=== PATIENT | female | born 1965 | race Caucasian/White ===

== ENCOUNTER 2017-11-01 18:07 | Emergency (ER) | payer OTHER ==
[2017-11-01 18:22] VITALS: BP 141/90
--- NOTE | 2017-11-01 18:35 | UC ---
Respiratory Complaint HPI - HPI Summary HPI Summary: 3 days of uri sx---has had a low grade fever and has now developed an itchy rash n left breast----(tea tree oil helps) - History of Current Complaint Chief Complaint: UCRespiratory Stated Complaint: COUGH, RASH, AND FEVER Time Seen by Provider: 11/01/17 18:16 Hx Obtained From: Patient Hx Last Menstrual Period: hysterectomy ?: No Onset/Duration: Sudden Onset, Lasting Days - 3, Still Present Timing: Constant Pain Intensity: 6 Pain Scale Used: 0-10 Numeric Character: Cough: Productive Aggravating Factors: Nothing Alleviating Factors: Nothing Associated Signs And Symptoms: Positive: Fever, URI, Nasal Congestion - Allergies/Home Medications Allergies/Adverse Reactions: Allergies Allergy/AdvReac Type Severity Reaction Status Date / Time cephalexin [From Keflex] Allergy See Comment Verified 11/01/17 18:24 codeine Allergy Altered Verified 11/01/17 18:24 Mental Status latex Allergy Rash Verified 11/01/17 18:25 Home Medications: Home Medications Budesonide 11/01/17 [History] DULoxetine DR CAP* [Cymbalta CAP*] 11/01/17 [History] Ergocalciferol (Vitamin D2) [Vitamin D2] 2,000 unit PO 11/01/17 [History] Folic Acid 1 mg PO 11/01/17 [History] Meloxicam [Mobic] 11/01/17 [History] Methotrexate [Xatmep] 4.25 mg 11/01/17 [History] Pregabalin [Lyrica] 50 mg PO 11/01/17 [History] PMH/Surg Hx/FS Hx/Imm Hx Previously Healthy: Yes - psor. arthritis - Surgical History Surgical History: Yes Surgery Procedure, Year, and Place: 2 EYE SURGERY FOR STRAIGHTENING EYES CHILD. C SECTION. HYSTERECTOMY. GALLBLADDER. BILATERAL ROTATOR CUFF SURGERIES - Family History Known Family History: Positive: None - Social History Occupation: Disabled Lives: With Family Alcohol Use: None Substance Use Type: Marijuana Smoking Status (MU): Heavy Every Day Tobacco Smoker Have You Smoked in the Last Year: Yes Cessation Counseling: Counseled 3+Min - 10 Min Review of Systems Constitutional: Fever, Chills Skin: Rash - left breast Eyes: Negative ENT: Negative Respiratory: Cough Cardiovascular: Negative Gastrointestinal: Negative Genitourinary: Negative Motor: Negative Neurovascular: Negative Musculoskeletal: Negative Neurological: Negative Psychological: Negative Is Patient Immunocompromised?: No All Other Systems Reviewed And Are Negative: Yes Physical Exam Triage Information Reviewed: Yes Appearance: Well-Appearing, No Pain Distress, Well-Nourished Vital Signs: Initial Vital Signs Temp 97.0 F 11/01/17 18:14 Pulse 83 11/01/17 18:14 Resp 20 11/01/17 18:14 BP 141/90 11/01/17 18:14 Pulse Ox 96 11/01/17 18:14 Vital Signs Reviewed: Yes Eye Exam: Normal Eyes: Positive: Conjunctiva Clear ENT Exam: Normal ENT: Positive: Normal ENT inspection, Hearing grossly normal, Nasal congestion. Negative: TMs normal, Trismus, Muffled voice, Hoarse voice, Sinus tenderness, Uvula midline Dental Exam: Normal Neck exam: Normal Neck: Positive: Supple, Nontender, No Lymphadenopathy Respiratory Exam: Other Respiratory: Positive: Chest non-tender, No respiratory distress, No accessory muscle use, Wheezing - both bases Cardiovascular Exam: Normal Cardiovascular: Positive: RRR, No Murmur, Pulses Normal, Brisk Capillary Refill Musculoskeletal Exam: Normal Musculoskeletal: Positive: Strength Intact, ROM Intact, No Edema Neurological Exam: Normal Neurological: Positive: Alert, Muscle Tone Normal Psychological Exam: Normal Skin Exam: Other Skin: Positive: Other - red flat itchy rash left breast UC Diagnostic Evaluation - Laboratory O2 Sat by Pulse Oximetry: 96 - Radiology Xray Interpretation: No Acute Changes Radiology Interpretation Completed By: ED Physician Re-Evaluation - Re-Evaluation First Eval Change: Improved - wheeze resolved Respiratory Course/Dx - Course Course Of Treatment: zithromax, albuterol, continue tea tree oil , follow with Dr. Price 11/02/17 to ed for worsening sx - Differential Dx/Diagnosis Provider Diagnoses: nicotine dependant, acute bronchospasm, rhinnitis Discharge - Sign-Out/Discharge Documenting (check all that apply): Patient Departure - Discharge Plan Condition: Stable Disposition: HOME Prescriptions: Albuterol HFA INHALER* [Ventolin HFA Inhaler*] 2 puff INH Q4H PRN #1 mdi PRN Reason: cough/wheeze Azithromycin TAB* [Zithromax TAB (Z-TOBY) 250 mg #6 tabs] 2 tab PO .TODAY, THEN 1 DAILY #1 toby Patient Education Materials: How to Stop Smoking (ED), Acute Bronchitis (ED), Contact Dermatitis (ED), Hypertension (ED), How to Use a Metered-Dose Inhaler ( ED) Referrals: Kim Montoya NP [Primary Care Provider] - 2 Weeks (for BP recheck) Hemal Price MD [Medical Doctor] - 1 Day - Billing Disposition and Condition Condition: STABLE Disposition: Home
[2017-11-01] MEDS ORDERED: Albuterol/Ipratropium NEB.SOL* Albuterol 2.5 MG/Ipratropium 0.5 MG 3 ML INH ONE (18:36)
--- NOTE | 2017-11-01 19:23 | RAD ---
Indication: Fever and cough. 2 views of the chest including dual energy PA views demonstrate no mediastinal shift. Heart is of normal size and configuration. Lung richards are clear. IMPRESSION: No active cardiopulmonary disease is noted.
[2017-11-02 11:36] LABS: ABS Basophils 0.1 10^3/ul (0-0.2); ABS Eosinophils 0.3 10^3/ul (0-0.6); ABS Lymphocytes 2.5 10^3/ul (1.0-4.8); ABS Neutrophils 3.5 10^3/ul (1.5-7.7); ABS Nucleated RBC 0 10^3/ul; Eosinophil % 4.2 % (0-6); Hematocrit 45 % (35-47); Hemoglobin 15.6 g/dl (12.0-16.0); Lymphocyte % 33.8 % (25-47); Mean Corpuscular HGB Conc 35 g/dl (31-36); Mean Corpuscular Hemoglobin 33 pg (27-31); Mean Corpuscular Volume 95 fL (80-97); Mean Platelet Volume 8.5 um3 (7.4-10.4); Nucleated Red Blood Cells % 0.1; Platelet Count 311 10^3/ul (150-450); Red Blood Count 4.71 10^6/ul (4.00-5.40); Red Cell Distribution Width 13 % (10.5-15); White Blood Count 7.4 10^3/ul (3.5-10.8)
[2017-11-02 12:34] LABS: EGFR Non-African American 69.7 (>60)
== END 2017-11-01 19:50 | disposition home or self-care (01) ==
LOC: UCEAST 18:07
DX: J31.0 Chronic rhinitis (principal); J98.01 Acute bronchospasm; R50.9 Fever, unspecified; R21 Rash and other nonspecific skin eruption; F17.210 Nicotine dependence, cigarettes, uncomplicated; Z88.1 Allergy status to other antibiotic agents; Z88.5 Allergy status to narcotic agent; Z91.040 Latex allergy status
CPT/HCPCS: 36415; 71046; 80053; 85025; 86140; 99212; A9270-GY; G0463

== ENCOUNTER 2018-11-17 14:10 | Emergency (ER) | payer OTHER ==
[2018-11-17 14:34] VITALS: BP 136/83
--- OUTSIDE RECORDS SUMMARY | 2018-11-17 14:46 | XMS REPORT | Continuity of Care Document ---
:1965 External Reference #:[id number] Author Name Amado Cowart DO, MPH Address [address] [place] [address], [address] [place] [address] Care Team Providers Name Role Phone Jeancarlos De M.D. - Family Care Team Information Protective Officer [phone] Medicine Monalisa Elliott NP - Internal Care Team Information Protective Officer [phone] Medicine Kim Montoya N.P. - Nurse Care Team Information Protective Officer [phone] Practitioner Problems Description No Information Available Social History Type Date Description Comments Sex Unknown Cigarette Use Current Cigarette Smoker 1 Pack Daily ETOH Use Denies alcohol use Tobacco Use Start: Unknown Patient is a current smoker, smokes every day Smoking Status Reviewed: 10/14/18 Patient is a current smoker, smokes every day Allergies, Adverse Reactions, Alerts Active Allergies Reaction Severity Comments Date Latex 06/26/2016 Codeine 06/26/2016 Aleve upset stomach 06/26/2016 Cephalexin 06/26/2016 Ibuprofen upset stomach 06/26/2016 Sulfa Antibiotics 06/26/2016 Nuts 06/26/2016 Wine 06/26/2016 Medications Active Medications SIG Qnty Indications Ordering Date Provider Cymbalta si by mouth 30caps Amado Cowart, 07/21/[address] once a day as , MPH Part directed chronic pain patient Oxycodone HCL si by mouth 120tabs Amado Cowart, 07/22/2016 5mg Tablets every 6 hours as , MPH directed chronic pain patient. Meloxicam si by mouth Unknown 15mg Tablets every day as needed Melatonin 1 by mouth at Unknown 5mg Tablets Sub night Vitamin D 1 by mouth daily Unknown 1000Unit Tablets Folic Acid 1 by mouth every Unknown 1mg Tablets day Lyrica si by mouth Unknown 75mg Capsules every 12 hours as directed chronic pain patient Budesonide Unknown 32mcg/Act Suspension Simponi Aria Unknown 50mg/4ML Solution Cetirizine HCL Unknown 10mg Tablets Triamcinolone apply to the Unknown Acetonide affected area 0.1% Cream three times a day Immunizations Description No Information Available Vital Signs Date Vital Result Comment 11/14/2018 10:59am BP Systolic 142 mmHg BP Diastolic 86 mmHg Heart Rate 82 /min Respiratory Rate 20 /min Height 67 inches 5'7" Weight 213.00 lb Pain Level 7 Pain at this time. Pain Level With Medicine 6 on average with meds Pain Level Without Medicine 9 without meds BMI (Body Mass Index) 33.4 kg/m2 10/14/2018 9:17am BP Systolic 128 mmHg BP Diastolic 84 mmHg Heart Rate 88 /min Respiratory Rate 20 /min Height 67 inches 5'7" Weight 211.00 lb Pain Level 7 Pain at this time. Pain Level With Medicine 6 on average with meds Pain Level Without Medicine 9 without meds BMI (Body Mass Index) 33.0 kg/m2 Results Description No Information Available Procedures Date Code Description Status 10/14/2018 78333 Therapeutic, Prophylactic Or Diagnostic Injection Subq/Im Completed 09/14/2018 64003 Therapeutic, Prophylactic Or Diagnostic Injection Subq/Im Completed 08/15/2018 81356 Omt 1-2 Body Regions Completed 08/15/2018 09494 Therapeutic, Prophylactic Or Diagnostic Injection Subq/Im Completed 07/15/2018 91135 Omt 1-2 Body Regions Completed 07/15/2018 71245 Therapeutic, Prophylactic Or Diagnostic Injection Subq/Im Completed 06/15/2018 33482 Omt 1-2 Body Regions Completed 06/15/2018 71511 Therapeutic, Prophylactic Or Diagnostic Injection Subq/Im Completed Medical Devices Description No Information Available Encounters Type Date Location Provider Dx Diagnosis Office Visit 10/14/2018 Main Office as Of Amado Cowart DO, G89.29 Other chronic pain 9:15a 05/06/13 MPH M54.2 Cervicalgia M54.5 Low back pain M54.6 Pain in thoracic spine R53.83 Other fatigue 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 autonomic nervous system Office Visit 09/14/2018 10:15a Main Office as Amado Cowart, G89.29 Other chronic Of 05/06/13 DO, MPH pain M54.2 Cervicalgia M54.5 Low back pain M54.6 Pain in thoracic spine Z79.891 shelter (current) use of opiate analgesic R53.83 Other fatigue 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 autonomic nervous system Office Visit 08/15/2018 3:30p Main Office as Amado Cowart G89.29 Other chronic Of 05/06/13 DO, MPH pain M54.2 Cervicalgia M99.01 Segmental and somatic dysfunction of cervical region M54.5 Low back pain M54.6 Pain in thoracic spine Z79.891 shelter (current) use of opiate analgesic R53.83 Other fatigue Office Visit 07/15/2018 9:45a Main Office as Amado Cowart, G89.29 Other chronic Of 05/06/13 DO, MPH pain M54.2 Cervicalgia M99.01 Segmental and somatic dysfunction of cervical region M54.6 Pain in thoracic spine M54.5 Low back pain R53.83 Other fatigue E55.9 Vitamin D deficiency, unspecified 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 Office Visit 06/15/2018 10:15a Main Office as Amado Cowart, G89.29 Other chronic Of 05/06/13 DO, MPH pain M54.2 Cervicalgia M99.01 Segmental and somatic dysfunction of cervical region M54.6 Pain in thoracic spine M54.5 Low back pain Z79.891 shelter (current) use of opiate analgesic R53.83 Other fatigue Assessments Date Code Description Provider 11/14/2018 G89.29 Other chronic pain Amado Cowart DO, MPH 11/14/2018 M54.2 Cervicalgia Amado Cowart DO, MPH 11/14/2018 M54.5 Low back pain Cowart, Amado, DO, MPH 11/14/2018 R53.83 Other fatigue Cowart, Amado, DO, MPH 11/14/2018 Z79.891 shelter (current) use of opiate analgesic Cowart, Amado , DO, MPH 10/14/2018 G89.29 Other chronic pain Cowart, Amado, DO, MPH 10/14/2018 M54.2 Cervicalgia Cowart, Amado, DO, MPH 10/14/2018 M54.5 Low back pain Cowart, Amado, DO, MPH 10/14/2018 M54.6 Pain in thoracic spine Cowrat, Amado, DO, MPH 10/14/2018 R53.83 Other fatigue Cowart, Amado, DO, MPH 10/14/2018 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 Cowart, Amado, DO, MPH 10/14/2018 Z79.891 shelter (current) use of opiate analgesic Cowart, Amado , DO, MPH 10/14/2018 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 autonomic Cowart, Amado, DO , MPH nervous system 09/14/2018 G89.29 Other chronic pain Cowart, Amado, DO, MPH 09/14/2018 M54.2 Cervicalgia Cowart, Amado, DO, MPH 09/14/2018 M54.5 Low back pain Cowart, Amado, DO, MPH 09/14/2018 M54.6 Pain in thoracic spine Cowart, Amado, DO, MPH 09/14/2018 Z79.891 shelter (current) use of opiate analgesic Cowart, Amado , DO, MPH 09/14/2018 R53.83 Other fatigue Cowart, Amado, DO, MPH 09/14/2018 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 autonomic Cowart, Amado, DO , MPH nervous system 08/15/2018 G89.29 Other chronic pain Cowart, Amado, DO, MPH 08/15/2018 M54.2 Cervicalgia Cowart, Amado, DO, MPH 08/15/2018 M99.01 Segmental and somatic dysfunction of Cowart, Amado, DO, MPH cervical region 08/15/2018 M54.5 Low back pain Cowart, Amado, DO, MPH 08/15/2018 M54.6 Pain in thoracic spine Cowart, Amado, DO, MPH 08/15/2018 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 Cowart, Amado , DO, MPH 08/15/2018 R53.83 Other fatigue Cowart, Amado, DO, MPH 07/15/2018 G89.29 Other chronic pain Cowart, Amado, DO, MPH 07/15/2018 M54.2 Cervicalgia Cowart, Amado, DO, MPH 07/15/2018 M99.01 Segmental and somatic dysfunction of Cowart, Amado, DO, MPH cervical region 07/15/2018 M54.6 Pain in thoracic spine Cowart, Amado, DO, MPH 07/15/2018 M54.5 Low back pain Cowart, Amado, DO, MPH 07/15/2018 R53.83 Other fatigue Cowart, Amado, DO, MPH 07/15/2018 E55.9 Vitamin D deficiency, unspecified Cowart, Amado, DO, MPH 07/15/2018 M05.49 Rheumatoid myopathy with rheumatoid Cowart, Amado, DO, MPH arthritis of multiple sites 07/15/2018 Z79.891 shelter (current) use of opiate analgesic Cowart, Amado , DO, MPH 06/15/2018 G89.29 Other chronic pain Cowart, Amado, DO, MPH 06/15/2018 M54.2 Cervicalgia Cowart, Amado, DO, MPH 06/15/2018 M99.01 Segmental and somatic dysfunction of Cowart, Amado, DO, MPH cervical region 06/15/2018 M54.6 Pain in thoracic spine Cowart, Amado, DO, MPH 06/15/2018 M54.5 Low back pain Cowart, Amado, DO, MPH 06/15/2018 Z79.891 shelter (current) use of opiate analgesic Cowart, Amado , DO, MPH 06/15/2018 R53.83 Other fatigue Cowart, Amado, DO, MPH Plan of Treatment Future Appointment(s):12/14/2018 10:00 am - Amado Cowart DO, MPH at Main Office as Of 05/06/1407 - Amado Cowart DO, MPHG89.29 Other chronic painComments:Chronic. Symptoms and complaints discussed and reviewed today. No significant changes in physical findings. Continue current medical pain management.M54.2 CervicalgiaComments:Chronic. Symptoms and complaints discussed and reviewed today. No significant changes in physical findings. Continue current medical pain management.M54.5 Low back painComments:Chronic. Symptoms and complaints discussed and reviewed today.No changes in physical findings. Patient is stable and comfortable when current medical therapy is rendered.R53.83 Other fatigueComments:Symptoms and complaints discussed and reviewed today. No significant changes in physical findings. Continue current medical pain management. B12 injection administered after patient evaluated. 1ml IM for fatigue. (See Consent for injection-B12 document for lot number and expiration date.)Z79.891 shelter (current) use of opiate analgesicNew Labs: Urine Drug Screen, Ordered: 11/14/18Comments:Urine drug screen sample taken. Rapid Point of Care Cup was reviewed in office with patient. Will send out UDT Rapid to Quantitative lab for confirmation testing. Urine Drug Testing (UDT) was done today to monitor opiate use and to monitor possible use of illicit substances. I will discuss the results at the next appointment from the Quantitative lab.The following tests were ordered:6 AM, AMPH, ISIDRO, GAGE, BUP, CARIS, COCM, COT, ETG, FENT, MCSHSG, OPI, OXY, PCP, TAPEN, XTSY, ZOLP. A urine drug test (UDT) was ordered for this patient and collected on site today. Creatinine has been ordered as well for specimen validity, not for kidney function. Preliminary UDT results are not final and should not be used to determine patient care or plan of treatment. Initially a qualitative immunoassay screen will be done. Any inconsistent or positive findings will be further tested with a more comprehensive quantitative confirmation LCMS study. It is part of the treatment process of prescribing controlled substances and is considered standard of care.AllComments:Continue current medical pain management ; injection therapy, osteopathic manipulation, PT / modalities, and consults as needed to manage chronic pain.Non - opioid pain management discussed and optionsdiscussed.Side effects discussed; anticipatory guidance given. Patient clearly understand and agree with all medical treatments and suggestions. All medicines prescribed are adequate and appropriate for this patient's complaint of pain, medical history, physical, and personal goals.Goals of Treatment are to provide adequate and appropriate multidisciplinary medical pain management to increase/ maintain patient's quality of life and functionality while maintaining satisfactory side effect profile andminimizing fpc end-organ damage. Importance of regular nutrition throughout the day discussed.Activity as toleratedContinue with PCP Functional Status Description No Information Available Mental Status Description No Information Available Referrals Description No Information Available
--- NOTE | 2018-11-17 15:07 | ED ---
GI/ HPI - HPI Summary HPI Summary: 53 yr old female with the complaint of dysuria, frequency and hesitancy of urination. Onset of symptoms about 2-3 days. She states she had a little urinary leakage as well. She feels she has a UTI. She has no other complaints. No back pain, no fever, no NV. - History of Current Complaint Chief Complaint: UCGU Time Seen by Provider: 11/17/18 14:52 Stated Complaint: URINARY ISSUES Hx Last Menstrual Period: hysterectomy Pain Intensity: 6 - Allergy/Home Medications Allergies/Adverse Reactions: Allergies Allergy/AdvReac Type Severity Reaction Status Date / Time adhesive tape Allergy Blisters Verified 11/17/18 14:34 cephalexin [From Keflex] Allergy See Comment Verified 11/17/18 14:34 codeine Allergy Altered Verified 11/17/18 14:34 Mental Status latex Allergy Rash Verified 11/17/18 14:34 Home Medications: Home Medications Dm/PE/Acetaminophen/Doxylamine [Vicks Dayquil/Nyquil Cold] 2 mis PO ONCE PRN [History Confirmed 11/17/18] PMH/Surg Hx/FS Hx/Imm Hx Endocrine/Hematology History: Denies: Hx Diabetes, Hx Thyroid Disease, Hx Anemia Cardiovascular History: Denies: Hx Hypertension, Hx Pacemaker/ICD Respiratory History: Denies: Hx Chronic Obstructive Pulmonary Disease (COPD) GI History: Denies: Hx Jaundice History: Denies: Hx Renal Disease Sensory History: Denies: Hx Hearing Aid Neurological History: Denies: Other Neuro Impairments/Disorders Psychiatric History: Denies: Hx Panic Disorder - Surgical History Surgery Procedure, Year, and Place: 2 EYE SURGERY FOR STRAIGHTENING EYES CHILD. C SECTION. HYSTERECTOMY. GALLBLADDER. BILATERAL ROTATOR CUFF SURGERIES Infectious Disease History: No Infectious Disease History: Denies: Traveled Outside the [place] in Last 30 Days - Family History Known Family History: Positive: None - Social History Occupation: Employed Full-time Alcohol Use: None Substance Use Type: Reports: Marijuana Hx Tobacco Use: Yes Smoking Status (MU): Current Every Day Smoker Amount Used/How Often: <10 cig/day Have You Smoked in the Last Year: Yes Review of Systems Constitutional: Negative Positive: dysuria, frequency, urgency All Other Systems Reviewed And Are Negative: Yes Physical Exam Triage Information Reviewed: Yes Vital Signs On Initial Exam: Initial Vitals Temp Pulse Resp BP Pulse Ox 97.1 F 79 18 136/83 96 11/17/18 14:30 11/17/18 14:30 11/17/18 14:30 11/17/18 14:30 11/17/18 14:30 Vital Signs Reviewed: Yes Appearance: Positive: Well-Appearing, No Pain Distress Skin: Positive: Warm, Skin Color Reflects Adequate Perfusion Head/Face: Positive: Normal Head/Face Inspection Eyes: Positive: EOMI ENT: Positive: Normal ENT inspection Neck: Positive: Nontender Respiratory/Lung Sounds: Positive: Clear to Auscultation, Breath Sounds Present Cardiovascular: Positive: RRR. Negative: Murmur Abdomen Description: Negative: Distended Musculoskeletal: Positive: Strength/ROM Intact Neurological: Positive: Sensory/Motor Intact, Alert, Oriented to Person Place, Time, CN Intact II-III Psychiatric: Positive: Normal Diagnostics - Vital Signs Vital Signs Temp Pulse Resp BP Pulse Ox 11/17/18 14:30 97.1 F 79 18 136/83 96 - Laboratory Lab Statement: Any lab studies that have been ordered have been reviewed, and results considered in the medical decision making process. GIGU Course/Dx - Course Course Of Treatment: 53 yr old with UTI. DC home on bactrim. - Diagnoses Provider Diagnoses: UTI (urinary tract infection) Discharge - Sign-Out/Discharge Documenting (check all that apply): Patient Departure All imaging exams completed and their final reports reviewed: No Studies - Discharge Plan Condition: Good Disposition: HOME Prescriptions: Sulfamethox/Trimethoprim DS* [Bactrim DS 800/160 TAB*] 1 tab PO BID #10 tab Patient Education Materials: Urinary Tract Infection in Men (ED) Referrals: Kim Montoya NP [Primary Care Provider] - 4 Days - Billing Disposition and Condition Condition: GOOD Disposition: Home
== END 2018-11-17 15:30 | disposition home or self-care (01) ==
LOC: UCEAST 14:10
DX: N39.0 Urinary tract infection, site not specified (principal); F17.210 Nicotine dependence, cigarettes, uncomplicated; Z88.5 Allergy status to narcotic agent; Z91.040 Latex allergy status
CPT/HCPCS: 81002; 87077; 87086; 87186; 99212; G0463

== ENCOUNTER 2019-03-07 15:58 | Emergency (ER) | payer OTHER ==
[2019-03-07 16:49] VITALS: BP 146/93
--- OUTSIDE RECORDS SUMMARY | 2019-03-07 16:49 | XMS REPORT | Continuity of Care Document ---
:1965 External Reference #:[id number] Author Name Amado Cowart DO, MPH Address [address] [place] [address], [address] [place] [address] Care Team Providers Name Role Phone Jeancarlos De M.D. - Family Care Team Information Electrical Instrument Maker [phone] Medicine Monalisa Elliott NP - Internal Care Team Information Electrical Instrument Maker Medicine Kim Montoya N.P. - Nurse Care Team Information Electrical Instrument Maker [phone] Practitioner Problems Description No Information Available Social History Type Date Description Comments Sex Unknown Cigarette Use Current Cigarette Smoker 1 Pack Daily ETOH Use Denies alcohol use Tobacco Use Start: Unknown Patient is a current smoker, smokes every day Smoking Status Reviewed: 02/10/19 Patient is a current smoker, smokes every [...] chronic pain patient Budesonide Unknown 32mcg/Act Suspension Cetirizine HCL Unknown 10mg Tablets Triamcinolone apply to the Unknown Acetonide affected area 0.1% Cream three times a day Cosentyx (300 MG Dose) Unknown 150mg/ml Soln Prefill Syringe [place] Unknown Immunizations Description No Information Available Vital Signs Date Vital Result Comment 02/10/2019 9:59am BP Systolic 130 mmHg BP Diastolic 86 mmHg Heart Rate 84 /min Respiratory Rate 20 /min Height 67 inches 5'7" Weight 199.00 lb Pain Level 6 Pain at this time. Pain Level With Medicine 5 on average with meds Pain Level Without Medicine 9 without meds BMI (Body Mass Index) 31.2 kg/m2 01/10/2019 10:06am BP Systolic 128 mmHg BP Diastolic 78 mmHg Heart Rate 74 /min Respiratory Rate 20 /min Height 67 inches 5'7" Weight 194.00 lb Pain Level 6 Pain at this time. Pain Level With Medicine 5 on average with meds Pain Level Without Medicine 9 without meds BMI (Body Mass Index) 30.4 kg/m2 Results Description No Information Available Procedures Date Code Description Status 01/10/2019 95414 Omt 1-2 Body Regions Completed 01/10/2019 57438 Therapeutic, Prophylactic Or Diagnostic Injection Subq/Im Completed 12/14/2018 94631 Omt 1-2 Body Regions Completed 12/14/2018 69810 Therapeutic, Prophylactic Or Diagnostic Injection Subq/Im Completed 11/14/2018 44424 Therapeutic, Prophylactic Or Diagnostic Injection Subq/Im Completed 10/14/2018 71301 Therapeutic, Prophylactic Or Diagnostic Injection Subq/Im Completed 09/14/2018 87370 Therapeutic, Prophylactic Or Diagnostic Injection Subq/Im Completed 08/15/2018 30162 Omt 1-2 Body Regions Completed 08/15/2018 36974 Therapeutic, Prophylactic Or Diagnostic Injection Subq/Im Completed Medical Devices Description No Information Available Encounters Type Date Location Provider Dx Diagnosis Office Visit 01/10/2019 Main Office as Of Amado Cowart DO, G89.29 Other chronic pain 10:15a 05/06/13 MPH M54.2 Cervicalgia M99.01 Segmental and somatic dysfunction of cervical region M54.5 Low back pain R53.83 Other fatigue Z79.891 snf (current) use of opiate analgesic Office Visit 12/14/2018 10:00a Main Office as Amado Cowart G89.29 Other chronic Of 05/06/13 DO, MPH pain M54.2 Cervicalgia M99.01 Segmental and somatic dysfunction of cervical region L40.59 Other psoriatic arthropathy Z79.891 snf (current) use of opiate analgesic R53.83 Other fatigue Office Visit 11/14/2018 10:45a Main Office as Amado Cowart G89.29 Other chronic Of 05/06/13 DO, MPH pain M54.2 Cervicalgia M54.5 Low back pain R53.83 Other fatigue 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 autonomic nervous system Office Visit 08/15/2018 3:30p Main Office as Amado Cowart, G89.29 Other chronic Of 05/06/13 DO, MPH pain M54.2 Cervicalgia M99.01 Segmental and somatic dysfunction of cervical region M54.5 Low back pain M54.6 Pain in thoracic spine Z79.891 snf (current) use of opiate analgesic R53.83 Other fatigue Assessments Date Code Description Provider 02/10/2019 G89.29 Other chronic pain Cowart, Amado, DO, MPH 02/10/2019 M54.2 Cervicalgia Cowart, Amado, DO, MPH 02/10/2019 M99.01 Segmental and somatic dysfunction of Cowart, Amado, DO, MPH cervical region 02/10/2019 M54.5 Low back pain Cowart, Amado, DO, MPH 02/10/2019 M54.6 Pain in thoracic spine Cowart, Amado, DO, MPH 02/10/2019 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 Cowart, Amado, DO, MPH 02/10/2019 R53.83 Other fatigue Cowart, Amado, DO, MPH 02/10/2019 Z79.891 snf (current) use of opiate analgesic Cowart, Amado , DO, MPH 01/10/2019 G89.29 Other chronic pain Cowart, Amado, DO, MPH 01/10/2019 M54.2 Cervicalgia Cowart, Amado, DO, MPH 01/10/2019 M99.01 Segmental and somatic dysfunction of Cowart, Amado, DO, MPH cervical region 01/10/2019 M54.5 Low back pain Cowart, Amado, DO, MPH 01/10/2019 R53.83 Other fatigue Cowart, Amado, DO, MPH 01/10/2019 Z79.891 snf (current) use of opiate analgesic Cowart, Amado , DO, MPH 12/14/2018 G89.29 Other chronic pain Cowart, Amado, DO, MPH 12/14/2018 M54.2 Cervicalgia Cowart, Amado, DO, MPH 12/14/2018 M99.01 Segmental and somatic dysfunction of Cowart, Amado, DO, MPH cervical region 12/14/2018 L40.59 Other psoriatic arthropathy Cowart, Amado, DO, MPH 12/14/2018 Z79.891 snf (current) use of opiate analgesic Cowart, Amado , DO, MPH 12/14/2018 R53.83 Other fatigue Cowart, Amado, DO, MPH 11/14/2018 G89.29 Other chronic pain Cowart, Amado, DO, MPH 11/14/2018 M54.2 Cervicalgia Cowart, Amado, DO, MPH 11/14/2018 M54.5 Low back pain Cowart, Amado, DO, MPH 11/14/2018 R53.83 Other fatigue Cowart, Amado, DO, MPH 11/14/2018 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 Cowart, Amado , DO, MPH 10/14/2018 G89.29 Other chronic pain Cowart, Amado, DO, MPH 10/14/2018 M54.2 Cervicalgia Cowart, Amado, DO, MPH 10/14/2018 M54.5 Low back pain Cowart, Amado, DO, MPH 10/14/2018 M54.6 Pain in thoracic spine Cowart, Amado, DO, MPH 10/14/2018 R53.83 Other fatigue Cowart, Amado, DO, MPH 10/14/2018 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 Cowart, Amado, DO, MPH 10/14/2018 Z79.891 snf (current) use of opiate analgesic Cowart, Amado , DO, MPH 10/14/2018 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 autonomic Cowart, Amado, DO , MPH nervous system 09/14/2018 G89.29 Other chronic pain Cowart, Amado, DO, MPH 09/14/2018 M54.2 Cervicalgia Cowart, Amado, DO, MPH 09/14/2018 M54.5 Low back pain Cowart, Amado, DO, MPH 09/14/2018 M54.6 Pain in thoracic spine Cowart, Amado, DO, MPH 09/14/2018 Z79.891 snf (current) use of opiate analgesic Cowart, Amado , DO, MPH 09/14/2018 R53.83 Other fatigue Cowart, Amado, DO, MPH 09/14/2018 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 autonomic Cowart, Amado, DO , MPH nervous system 08/15/2018 G89.29 Other chronic pain Cowart, Amado, DO, MPH 08/15/2018 M54.2 Cervicalgia Cowart, Amado, DO, MPH 08/15/2018 M99.01 Segmental and somatic dysfunction of Amado Cowart DO, MPH cervical region 08/15/2018 M54.5 Low back pain Amado Cowart DO MPH 08/15/2018 M54.6 Pain in thoracic spine Amado Cowart DO MPH 08/15/2018 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 Symptoms and complaints discussed and reviewed today. No significant changes in physical findings. Continue current medical pain management.M54.2 CervicalgiaComments:Chronic. Symptoms and complaints discussed and reviewed today. No significant changes in physical findings. Continue current medical pain management.M99.01 Segmental and somatic dysfunction of cervical regionComments:Chronic. Symptoms and complaints discussed and reviewed today. Somatic dysfunctions noted warrantingOMT. Continue current medical pain management and OMT. [id number]. OMT performed.M54.5 Low back painComments:Chronic. Symptoms and complaints discussed and reviewed today.No changes in physical findings. Patient is stable and comfortable when current medical therapy is rendered.M54.6 Pain in thoracic spineComments:Chronic.Symptoms and complaints discussed and reviewed today. No significant changes in physical findings. Continue current medical pain management.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Comments:Chronic. Symptoms and complaints discussed and reviewed today. No significant changes in physical findings. Continue current medical pain management.R53.83 Other fatigueComments:Symptoms and complaints discussed and reviewed today. No significant changes in physical findings. Continue current medical pain management. B12 injection administered after patient evaluated. 1ml IM for fatigue. (See Consent for injection-B12 document for lot number and expiration date.)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New Labs: Urine Drug Screen, Ordered: 02/10/19Comments:Urine drug screen sample taken. Rapid Point of [...] AM, AMPH, ISIDRO, GAGE, BUP, CARIS, COCM, ETG, FENT, MCSHSG, OPI, OXY, PCP, TAPEN, [...] while maintaining satisfactory side effect profile andminimizing correction end-organ damage. Importance of regular nutrition throughout the day discussed.Activity as toleratedContinue with PCP Functional Status Description No Information Available Mental Status Description No Information Available Referrals Description No Information Available
--- OUTSIDE RECORDS SUMMARY | 2019-03-07 16:49 | XMS REPORT | Continuity of Care Document ---
:1965 External Reference #:[id number] Author Name Amado Cowart DO, MPH Address [address] [place] [address], [address] [place] [address] Care Team Providers Name Role Phone Jeancarlos De M.D. - Family Care Team Information Medical Device Assembler [phone] Medicine Monalisa Elliott NP - Internal Care Team Information Medical Device Assembler [phone] Medicine Kim Montoya N.P. - Nurse Care Team Information Medical Device Assembler [phone] Practitioner Problems Description No Information Available Social History Type Date Description Comments Sex Unknown Cigarette Use Current Cigarette Smoker 1 Pack Daily ETOH Use Denies alcohol use Tobacco Use Start: Unknown Patient is a current smoker, smokes every day Smoking Status Reviewed: 01/10/19 Patient is a current smoker, smokes every [...] MG Dose) Unknown 150mg/ml Soln Prefill Syringe Immunizations Description No Information Available Vital Signs Date Vital Result Comment 01/10/2019 10:06am BP Systolic 128 mmHg BP Diastolic 78 mmHg Heart Rate 74 /min Respiratory Rate 20 /min Height 67 inches 5'7" Weight 194.00 lb Pain Level 6 Pain at this time. Pain Level With Medicine 5 on average with meds Pain Level Without Medicine 9 without meds BMI (Body Mass Index) 30.4 kg/m2 12/14/2018 10:01am BP Systolic 132 mmHg BP Diastolic 84 mmHg Heart Rate 86 /min Respiratory Rate 20 /min Height 67 inches 5'7" Weight 194.00 lb Pain Level 7 Pain at this time. Pain Level With Medicine 7 on average with meds Pain Level Without Medicine 9 without meds BMI (Body Mass Index) 30.4 kg/m2 Results Description No Information Available Procedures Date Code Description Status 12/14/2018 35359 Omt 1-2 Body Regions Completed 12/14/2018 56351 Therapeutic, Prophylactic Or Diagnostic Injection Subq/Im Completed 11/14/2018 52144 Therapeutic, Prophylactic Or Diagnostic Injection Subq/Im Completed 10/14/2018 22422 Therapeutic, Prophylactic Or Diagnostic Injection Subq/Im Completed 09/14/2018 61046 Therapeutic, Prophylactic Or Diagnostic Injection Subq/Im Completed 08/15/2018 52462 Omt 1-2 Body Regions Completed 08/15/2018 01658 Therapeutic, Prophylactic Or Diagnostic Injection Subq/Im Completed 07/15/2018 59985 Omt 1-2 Body Regions Completed 07/15/2018 26771 Therapeutic, Prophylactic Or Diagnostic Injection Subq/Im Completed Medical Devices Description No Information Available Encounters Type Date Location Provider Dx Diagnosis Office Visit 12/14/2018 Main Office as Of Amado Cowart DO, G89.29 Other chronic pain 10:00a 05/06/13 MPH M54.2 Cervicalgia M99.01 Segmental and somatic dysfunction of cervical region L40.59 Other psoriatic arthropathy 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 R53.83 Other fatigue Office Visit 11/14/2018 10:45a Main Office as Amado Cowart, G89.29 Other chronic Of 05/06/13 DO, MPH pain M54.2 Cervicalgia M54.5 Low back pain R53.83 Other fatigue Z79.891 prison (current) use of opiate analgesic Office Visit 10/14/2018 9:15a Main Office as Amado Cowart G89.29 Other chronic Of 05/06/13 DO, MPH pain M54.2 Cervicalgia M54.5 Low back pain M54.6 Pain in thoracic spine R53.83 Other fatigue 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 Z79.891 prison (current) use of opiate analgesic 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 autonomic nervous system Office Visit 09/14/2018 10:15a Main Office as Amado Cowart, G89.29 Other chronic Of 05/06/13 DO, MPH pain M54.2 Cervicalgia M54.5 Low back pain M54.6 Pain in thoracic spine 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 R53.83 Other fatigue 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 autonomic nervous system Office Visit 08/15/2018 3:30p Main Office as Amado Cowart G89.29 Other chronic Of 05/06/13 DO, MPH pain M54.2 Cervicalgia M99.01 Segmental and somatic dysfunction of cervical region M54.5 Low back pain M54.6 Pain in thoracic spine 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 R53.83 Other fatigue Office Visit 07/15/2018 9:45a Main Office as Amado Cowart, G89.29 Other chronic Of 05/06/13 DO, MPH pain M54.2 Cervicalgia M99.01 Segmental and somatic dysfunction of cervical region M54.6 Pain in thoracic spine M54.5 Low back pain R53.83 Other fatigue E55.9 Vitamin D deficiency, unspecified 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 Z79.891 prison (current) use of opiate analgesic Assessments Date Code Description Provider 01/10/2019 G89.29 Other chronic pain Cowart, Amado, DO, MPH 01/10/2019 M54.2 Cervicalgia Cowart, Amado, DO, MPH 01/10/2019 M99.01 Segmental and somatic dysfunction of Cowart, Amado, DO, MPH cervical region 01/10/2019 M54.5 Low back pain Cowart, Amado, DO, MPH 01/10/2019 R53.83 Other fatigue Cowart, Amado, DO, MPH 01/10/2019 Z79.891 prison (current) use of opiate analgesic Cowart, Amado , DO, MPH 12/14/2018 G89.29 Other chronic pain Cowart, Amado, DO, MPH 12/14/2018 M54.2 Cervicalgia Cowart, Amado, DO, MPH 12/14/2018 M99.01 Segmental and somatic dysfunction of Cowart, Amado, DO, MPH cervical region 12/14/2018 L40.59 Other psoriatic arthropathy Cowart, Amado, DO, MPH 12/14/2018 Z79.891 prison (current) use of opiate analgesic Cowart, Amado , DO, MPH 12/14/2018 R53.83 Other fatigue Cowart, Amado, DO, MPH 11/14/2018 G89.29 Other chronic pain Cowart, Amado, DO, MPH 11/14/2018 M54.2 Cervicalgia Cowart, Amado, DO, MPH 11/14/2018 M54.5 Low back pain Cowart, Amado, DO, MPH 11/14/2018 R53.83 Other fatigue Cowart, Amado, DO, MPH 11/14/2018 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 Cowart, Amado [...] mutilans Cowart, Amado, DO, MPH 10/14/2018 Z79.891 prison (current) use of opiate analgesic Cowart, Amado , DO, MPH 10/14/2018 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 autonomic Cowart, Amado, DO , MPH nervous system 09/14/2018 G89.29 Other chronic pain Cowart, Amado, DO, MPH 09/14/2018 M54.2 Cervicalgia Cowart, Amado, DO, MPH 09/14/2018 M54.5 Low back pain Cowart, Amado, DO, MPH 09/14/2018 M54.6 Pain in thoracic spine Cowart, Amado, DO, MPH 09/14/2018 Z79.891 prison (current) use of opiate analgesic Cowart, Amado [...] spine Cowart, Amado, DO, MPH 08/15/2018 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 Cowart, Amado , DO, MPH 08/15/2018 R53.83 Other fatigue Cowart, Amado, DO, MPH 07/15/2018 G89.29 Other chronic pain Cowart, Amado, DO, MPH 07/15/2018 M54.2 Cervicalgia Cowart, Amado, DO, MPH 07/15/2018 M99.01 Segmental and somatic dysfunction of Amado Cowart DO MPH cervical region 07/15/2018 M54.6 Pain in thoracic spine Amado Cowart DO, MPH 07/15/2018 M54.5 Low back pain Amado Cowart DO MPH 07/15/2018 R53.83 Other fatigue Amado Cowart DO, MPH 07/15/2018 E55.9 Vitamin D deficiency, unspecified Amado Cowrat DO, MPH 07/15/2018 M05.49 Rheumatoid myopathy with rheumatoid Amado Cowart DO MPH arthritis of multiple sites 07/15/2018 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 Symptoms and complaints [...] Continue current medical pain management and OMT. [id number]. OMT performed.M54.5 Low back painComments:Chronic. Symptoms and [...] document for lot number and expiration date.)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New Labs: Urine Drug Screen, Ordered: 01/10/19Comments:Urine drug screen sample taken. Rapid Point of [...] while maintaining satisfactory side effect profile andminimizing [facility] end-organ damage. Importance of regular nutrition throughout the day discussed.Activity as toleratedContinue with PCP Functional Status Description No Information Available Mental Status Description No Information Available Referrals Description No Information Available
--- NOTE | 2019-03-07 18:54 | UC ---
Skin Complaint HPI - HPI Summary HPI Summary: 53 yo woman with psoriatic arthritis, who has has 4 days of progressive rash on her chin along with soreness in the right nares. Has reactions to many dermatologicals, has been using vaseline and compresses. Currently on cosentyx for treatment of psoriatic arthritis. - History of Current Complaint Chief Complaint: UCSkin Time Seen by Provider: 03/07/19 18:43 Stated Complaint: SKIN COMPLAINT Hx Obtained From: Patient Hx Last Menstrual Period: hysterectomy Onset/Duration: Gradual Onset, Lasting Days Timing: Constant Onset Severity: Mild Current Severity: Moderate Pain Intensity: 7 Location: Discrete - right nares and chin Character: Swelling, Redness, Painful Aggravating Factor(s): Touch Alleviating Factor(s): Cold Associated Signs & Symptoms: Positive: Drainage - has a gold crust over the rash - Allergy/Home Medications Allergies/Adverse Reactions: Allergies Allergy/AdvReac Type Severity Reaction Status Date / Time adhesive tape Allergy Blisters Verified 03/07/19 16:49 cephalexin [From Keflex] Allergy See Comment Verified 03/07/19 16:49 codeine Allergy Altered Verified 03/07/19 16:49 Mental Status latex Allergy Rash Verified 03/07/19 16:49 Home Medications: Home Medications Cetirizine HCl 10 mg PO DAILY WITH MEAL 03/07/19 [History Confirmed 03/07/19] Pregabalin [Lyrica] 75 mg PO TID 03/07/19 [History Confirmed 03/07/19] Secukinumab [Cosentyx Pen] 150 mg SQ MONTHLY 03/07/19 [History Confirmed ] PMH/Surg Hx/FS Hx/Imm Hx - Additional Past Medical History Additional PMH: psoriatic arthritis - Surgical History Surgical History: Yes Surgery Procedure, Year, and Place: 2 EYE SURGERY FOR STRAIGHTENING EYES CHILD. C SECTION. HYSTERECTOMY. GALLBLADDER. BILATERAL ROTATOR CUFF SURGERIES - Family History Known Family History: Positive: None, Non-Contributory - Social History Occupation: Disabled Lives: With Family Alcohol Use: Rare Substance Use Type: Marijuana Smoking Status (MU): Current Every Day Smoker Amount Used/How Often: <10 cig/day Have You Smoked in the Last Year: Yes Household Exposure Type: Cigarettes Review of Systems All Other Systems Reviewed And Are Negative: Yes Constitutional: Positive: Negative Skin: Positive: Rash Eyes: Positive: Negative ENT: Positive: Dental Pain - pending dental extraction tomorrow. Respiratory: Positive: Negative Cardiovascular: Positive: Negative Gastrointestinal: Positive: Negative Genitourinary: Positive: Negative Musculoskeletal: Positive: Arthralgia Neurological: Positive: Negative Psychological: Positive: Negative Is Patient Immunocompromised?: Yes - on biological agent. Physical Exam Triage Information Reviewed: Yes Appearance: Ill-Appearing - looks chronically unwell Vital Signs: Initial Vital Signs Temp 98.5 F 03/07/19 16:45 Pulse 82 03/07/19 16:45 Resp 18 03/07/19 16:45 BP 146/93 03/07/19 16:45 Pulse Ox 98 03/07/19 16:45 ENT: Positive: Pharynx normal, Nasal drainage - right nares with swelling, erythema Dental: Positive: Gross Decay/Caries @ - upper incisors/molars Neck: Positive: Supple, Nontender, No Lymphadenopathy Respiratory: Positive: Lungs clear, Normal breath sounds Cardiovascular: Positive: RRR, No Murmur Neurological Exam: Normal Psychological Exam: Normal Skin Exam: Other - covering chin from right angle of mouth to left chin, erythematous rash with some scattered papules and light yellow serous drainage. Course/Dx - Course Course Of Treatment: given allergy history, will treat impetigo with augmentin. - Differential Diagnoses - Skin Complaint Differential Diagnoses: Cellulitis, Impetigo - Diagnoses Provider Diagnosis: Impetigo Discharge ED - Sign-Out/Discharge Documenting (check all that apply): Patient Departure All imaging exams completed and their final reports reviewed: No Studies - Discharge Plan Condition: Stable Disposition: HOME Prescriptions: Amoxicillin/Clavulanate TAB* [Augmentin TAB 875*] 875 mg PO BID #14 tab Referrals: Kim Montoya COMMUNICATIONS LEAD [Primary Care Provider] - - Billing Disposition and Condition Condition: STABLE Disposition: Home
[2019-03-07] MEDS ORDERED: Amoxicillin/Clavulanate TAB* 875 MG PO ONE (18:59)
== END 2019-03-07 19:10 | disposition home or self-care (01) ==
LOC: UCEAST 15:58
DX: L01.00 Impetigo, unspecified (principal); L40.50 Arthropathic psoriasis, unspecified; K08.89 Other specified disorders of teeth and supporting structures; F17.210 Nicotine dependence, cigarettes, uncomplicated; Z91.09 Other allergy status, other than to drugs and biological substances; Z88.1 Allergy status to other antibiotic agents; Z88.5 Allergy status to narcotic agent; Z91.040 Latex allergy status
CPT/HCPCS: 99212; A9270-GY; G0463